=== PATIENT | male | born 1985 | race Hispanic/Latino ===

== ENCOUNTER 2018-12-18 01:53 | Inpatient (IN) | payer SELFPAY ==
[2018-12-18 05:52] LABS: #Lymphocytes 1.2 thou/uL (1.20-3.40); #Monocytes 0.8 thou/uL (0.11-0.59); #Neutrophils 13.4 thou/uL (1.40-6.50); %Basophils 0.1 % (0.0-1.0); %Eosinophils 0.2 % (0.0-10.0); %Lymphocytes 7.5 % (21.0-51.0); %Neutrophils 87.2 % (42.0-75.0); Hemoglobin 15.2 g/dL (14.0-18.0); Mean Corpuscular HGB CONC 34.7 g/dL (32.0-36.0); Mean Corpuscular Hemoglobin 33.4 pg (27.0-31.0); Mean Corpuscular Volume 96.2 fL (78.0-98.0); Mean Platelet Volume 6.9 fL (7.4-10.4); Platelet Count 208 thou/uL (130-400); RBC Distribution Width 11.6 % (11.5-14.5); Red Blood Cell (RBC) Count 4.54 mill/uL (4.70-6.10); White Blood Cell (WBC) Count 15.4 thou/uL (4.8-10.8)
[2018-12-18 06:13] LABS: ALT (SGPT) 90 U/L (8-55); AST (SGOT) 84 U/L (5-34); Albumin 4.7 g/dL (3.5-5.0); Alkaline Phosphatase 92 U/L (40-150); Anion Gap 18 mmol/L (10-20); BUN (Urea Nitrogen) 11 mg/dL (8.9-20.6); Bilirubin, Total 0.4 mg/dL (0.2-1.2); Calc. Creatinine Clearance 0 mL/min (70-130); Carbon Dioxide 20 mmol/L (22-29); Chloride 103 mmol/L (98-107); Estimated GFR-MDRD 88; Glucose 117 mg/dL (70-105); Lipase 17 U/L (8-78); Potassium 4.2 mmol/L (3.5-5.1); Protein, Total 7.7 g/dL (6.0-8.3); Sodium 137 mmol/L (136-145)
[2018-12-18 07:17] LABS: Bacteria/HPF None Seen HPF (None Seen); Bilirubin Negative (Negative); Blood, Urine 1+ (Negative); Clarity Clear (Clear); Glucose, Urine (Dipstick) Normal (Negative); Leukocyte 75 Leu/uL (Negative); Mucous/LPF Rare LPF (<2+); Nitrite Negative (Negative); Protein, Urine (Dipstick) 100 mg/dL (Neg-Trace); RBC/HPF 0-3 HPF (0-3); Squamous Epithelial 0-3 HPF (0-3); Urobilinogen Normal mg/dL (Less than 2); WBC/HPF 21-50 HPF (0-3)
--- NOTE | 2018-12-18 07:45 | RAD ---
Exam:Right femur 2 views HISTORY: Pain. Trauma. COMPARISON: None FINDINGS: Displaced femoral neck fracture. Associated deformity and soft tissue swelling. IMPRESSION: Femoral neck fracture.
[2018-12-18] MEDS ORDERED: CEFAZOLIN 2 GM in Premix Bag 1 BAG IVPB SCH (08:00)
[2018-12-18] MEDS ORDERED: Morphine 4 MG/ML VIAL ONE (08:12)
[2018-12-18] MEDS ORDERED: ceFAZolin Sodium (SDC) 2 GM/100 ML BAG ONE (08:14)
[2018-12-18] MEDS ORDERED: Fentanyl 100 MCG/2 ML VIAL ONE (08:22)
[2018-12-18] MEDS ORDERED: Midazolam HCl 2 mg/2 ml Vial ONE (08:22)
[2018-12-18] MEDS ORDERED: Famotidine/PF 20 mg/2ml Vial ONE (08:22)
[2018-12-18] MEDS ORDERED: Albuterol Sulfate HFA (OR ONLY) ONE (08:28)
--- NOTE | 2018-12-18 09:00 | HP ---
This is Truman Lainez PA-C dictating a report for Jluis Downs MD. REQUESTING PHYSICIAN: Dr. Ye. CONSULTATIONS: Orthopedics, Dr. Cruz. HISTORY OF PRESENT ILLNESS: The patient is a 33-year-old man, who was intoxicated last night when he fell down a flight of stairs. He was brought to the emergency department by ground EMS, where he underwent evaluation and examination and was noted to have a right femoral neck fracture, in the which time we were asked to admit the patient and obtain orthopedic consultation. The patient denies loss of consciousness. The family and friends at bedside state that they did not see him lose consciousness. ALLERGIES: NONE. CURRENT MEDICATIONS: None. PAST MEDICAL HISTORY: None. PAST SURGICAL HISTORY: None. SOCIAL HISTORY: The patient smokes approximately half pack of cigarettes per day. Drinks alcohol on weekends. Denies drug use. 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 REVIEW OF SYSTEMS: Ten-point review of systems is negative except as otherwise stated. PHYSICAL EXAMINATION: VITAL SIGNS: Blood pressure 104/63, heart rate 86, respirations 18, oxygen saturation 98% on room air, and temperature is 98. GENERAL: The patient is resting comfortably in bed. He is awake and utilizing a pinsetter mechanic automatic. He is able to answer questions. He is alert and oriented x3. Ferguson Coma Scale is 15. HEENT: Head is normocephalic and atraumatic. Eyes; extraocular motion intact. PERRLA bilaterally. Ears are atraumatic without discharge. Nose is atraumatic without discharge. Oropharynx is clear. The patient does have abrasions to the right side of his face from the forehead to his maxilla. NECK: Nontender. Trachea is midline. No JVD. CHEST: Clear to auscultation with good inspiratory and expiratory effort. HEART: Regular rate and rhythm. ABDOMEN: Soft, flat, and nontender with active bowel sounds. PELVIS: Stable with tenderness to palpation of the right hip consistent with his fracture. EXTREMITIES: All neurovascularly intact. BACK: By report is atraumatic and nontender. LABORATORY FINDINGS: White blood cell count 15.4, hemoglobin 15.2, hematocrit 43.7, and platelets 208. Sodium 137, potassium 4.2, chloride 103, CO2 of 20, BUN 11, creatinine 0.99, glucose 117, total bilirubin 0.4, AST 84, ALT 90, alkaline phosphatase 92. Urinalysis; positive LE, 21 to 50 wbc's. RADIOGRAPHIC FINDINGS: CT of the head without contrast shows no acute process. CT of the facial bones without contrast shows no acute findings. CT of the C-spine without contrast shows no acute findings. Plain radiographs of the right hip show a femoral neck fracture. ASSESSMENT: 1. Status post ground level fall. 2. Facial abrasions and contusions. 3. Right femoral neck fracture. 4. Acute pain secondary to trauma. PLAN: Plan will be to keep the patient n.p.o. Admit him to the surgical floor. IV rehydration, pain medications, pulmonary toilet, gastritis, and mechanical VTE prophylaxis. Per discussion with Dr. Cruz, the patient will be taken to the operating room today. The patient was seen in the emergency department with Dr. Downs. Job ID: [id number]
[2018-12-18] MEDS ORDERED: Ondansetron HCl/PF 4 MG/2 ML Vial IVP PRN (09:24)
[2018-12-18] MEDS ORDERED: Promethazine HCl 25 MG/ML VIAL SLOW IVP PRN (09:24)
[2018-12-18] MEDS ORDERED: Promethazine HCl 25 MG/ML VIAL IM PRN ×2 (09:24→09:38)
[2018-12-18] MEDS ORDERED: Meperidine HCl/PF 25 MG/ML VIAL SLOW IVP PRN (09:24)
[2018-12-18] MEDS ORDERED: Dextrose 5% in Water 1,000 ML IV PRN (09:38)
[2018-12-18] MEDS ORDERED: Ondansetron PF 4 MG/2 ML Vial IVP PRN (09:38)
[2018-12-18] MEDS ORDERED: hydrALAZINE 20 MG/ML VIAL SLOW IVP PRN (09:38)
[2018-12-18] MEDS ORDERED: Sodium Chloride 0.9% 1,000 ML IV SCH (09:38)
[2018-12-18] MEDS ORDERED: Dextrose 50% Abboject 50 ML SYRINGE SLOW IVP PRN (09:38)
[2018-12-18] MEDS ORDERED: Acetaminophen 1,000 MG in Premix Bag 1 BAG IVPB SCH (09:38)
[2018-12-18] MEDS ORDERED: Ondansetron ODT 4 MG TAB PO PRN (09:38)
[2018-12-18] MEDS ORDERED: Acetaminophen/Codeine 30-300mg Tablet PO PRN (09:48)
[2018-12-18] MEDS ORDERED: Famotidine/PF 20 mg/2ml Vial SLOW IVP SCH (10:00)
[2018-12-18] MEDS ORDERED: Aspirin 81 mg Enteric Coated Tablet PO SCH ×2 (10:00)
[2018-12-18] MEDS ORDERED: Morphine 2 MG/ML SYRINGE SLOW IVP PRN (10:01)
[2018-12-18] MEDS: Ketorolac Tromethamine 30 MG/ML VIAL IVP SCH ×3 (10:42→21:01)
--- NOTE | 2018-12-18 11:04 | CT ---
CT HEAD NONCONTRAST: INDICATIONS: Fall with head injury. Pain. FINDINGS: No ventriculomegaly, mass effect, midline shift, or acute intracranial hemorrhage. The calvarium is intact. There is no pneumocephalus. Mild scattered opacification of the paranasal sinuses is seen. IMPRESSION: No acute intracranial hemorrhage or mass effect. POS: [facility]
--- NOTE | 2018-12-18 11:05 | CT ---
CT FACIAL BONES: INDICATIONS: Fall with facial injury and pain. FINDINGS: The orbital alegre are intact. No retrobulbar hematoma or mass effect. No displaced fracture of the nasal bones. The temporomandibular joints are maintained in alignment where visualized. No fracture of either maxillary sinus. No acute hemorrhagic fluid level of the paranasal sinuses. There is sca ttered paranasal sinus mucosal thickening. The mandible is intact. IMPRESSION: No displaced facial fracture. POS: [facility]
[2018-12-18] MEDS ORDERED: Lidocaine 1% PF 5 ML VIAL ONE (11:26)
[2018-12-18] MEDS ORDERED: Ondansetron PF 4 MG/2 ML Vial ONE (11:26)
[2018-12-18] MEDS ORDERED: Dexamethasone 20 MG/5 ML VIAL ONE (11:26)
[2018-12-18] MEDS ORDERED: Metoclopramide HCl 10 MG/2 ML VIAL ONE (11:26)
[2018-12-18] MEDS ORDERED: PROPOFOL 200 MG/20 ML VIAL ONE (11:26)
[2018-12-18] MEDS ORDERED: PHENYLEPHRINE-NS 100 MCG/ML 10 ML SYRINGE ONE (11:26)
[2018-12-18] MEDS ORDERED: Succinylcholine Chloride 20 MG/ML 10 ml SYRINGE FS ONE (11:26)
[2018-12-18] MEDS ORDERED: Ketorolac Tromethamine 30 MG/ML VIAL ONE (11:26)
[2018-12-18] MEDS ORDERED: traMADol HCl 50 MG TAB PO PRN (15:57)
--- NOTE | 2018-12-18 15:57 | HP ---
HISTORY OF PRESENT ILLNESS: This is a 33-year-old man, who is intoxicated, fell down a flight of stairs after visiting his [id number]. Denies injury to other parts other than scraping his face. PAST MEDICAL HISTORY: Negative. CURRENT MEDICATIONS: None. ALLERGIES: NONE. SOCIAL HISTORY: He does drink alcohol on a regular basis. 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 REVIEW OF SYSTEMS: Positive only for facial lacerations. Denies headache, nausea, loss of consciousness, or other pain. PHYSICAL EXAMINATION: GENERAL: Shows a pleasant gentleman, who is in no distress. Facial abrasions are present. HEENT: Normocephalic, atraumatic. LUNGS: Clear. MUSCULOSKELETAL: Right hip has pain with internal and external rotation. Abrasions on the right leg. DIAGNOSTIC DATA: Radiographs show a displaced femoral neck fracture. PLAN: Plan is for closed reduction and pinning, possible open reduction of the right femoral neck. He understands the risks of infection, stiffness, , blood clots, transfusion, and , he elected to proceed with surgery. Job ID: [id number]
[2018-12-18] MEDS: traMADol HCl 50 MG TAB PO SCH ×2 (17:37→23:20)
[2018-12-18] MEDS: Acetaminophen 500 MG TAB PO SCH ×2 (17:37→23:20)
--- NOTE | 2018-12-18 17:43 | RAD ---
EXAM: RIGHT HIP TWO VIEWS: History: Status post ORIF. FINDINGS: Two portable fluoroscopic spot films are presented for interpretation. Three internal fixation screws stabilize the previously noted femoral neck fracture. IMPRESSION: Three internal fixation screws stabilizing the previously noted femoral neck fracture. POS: [facility]NE
[2018-12-18 19:24] VITALS: BMI 28.3
[2018-12-18] MEDS: Famotidine 20 MG TAB PO SCH (20:38)
[2018-12-18] MEDS: Ibuprofen 800 MG TAB PO SCH (21:03)
--- NOTE | 2018-12-18 22:59 | OP ---
DATE OF PROCEDURE: 12/18/2018 PREOPERATIVE DIAGNOSIS: Femoral neck fracture, right. POSTOPERATIVE DIAGNOSIS: Femoral neck fracture, right. PROCEDURES PERFORMED: Closed reduction and percutaneous pin fixation of the right hip. ANESTHESIA: General. BLOOD LOSS: Minimal, less than 10. SPECIMEN: None. DRAIN: None. COMPLICATION: None. DESCRIPTION OF PROCEDURE: The patient was taken to the operating room, where general anesthesia was induced. The patient was placed on fracture table. Reduction was performed with fracture table and prepped and draped in the usual sterile fashion. Initial reduction was anatomic and placed our first screw across the fracture through a small lateral incision and compressed it. I did somewhat over compress the fracture site; however, I did not feel as I would likely go back on this. I placed two more roughly parallel pins, an 80 and an 85 were used with very good compression, very strong bone. Irrigation performed. Skin was closed with Monocryl. Sterile dressings applied. Job ID: [id number]
--- NOTE | 2018-12-19 01:12 | PRG ---
DATE OF SERVICE: 12/18/2018 SUBJECTIVE: The patient is currently on the surgical floor. The patient is postop close reduction and percutaneous pin fixation of the right hip. The patient is currently tolerating a regular diet. The patient reports that his right hip pain is well controlled. The patient does report chest pain with cough and deep breath. OBJECTIVE: VITAL SIGNS: Stable. The patient is afebrile. GENERAL: The patient is awake and alert, in no distress. HEENT: Facial abrasions mainly to the right. RESPIRATORY: Bilateral breath sounds clear. Equal chest expansion. No acute distress. EXTREMITIES: Neurovascularly intact x4. ASSESSMENT: 1. Status post fall from stairs 2. Facial abrasions and contusions. 3. Right femoral neck fracture, postop day #0, close reduction and percutaneous pin fixation. 4. Acute traumatic pain. PLAN: Continue regular diet as tolerated. Continue supportive care. PT and OT tomorrow. We will obtain a chest x-ray as the patient fell a flight of stairs. No prior chest x-ray obtained. Job ID: [id number] [facility]
[2018-12-19] MEDS: Ketorolac Tromethamine 30 MG/ML VIAL IVP SCH (05:00)
[2018-12-19] MEDS: traMADol HCl 50 MG TAB PO SCH ×3 (05:57→18:56)
[2018-12-19] MEDS: Ibuprofen 800 MG TAB PO SCH ×3 (05:57→21:34)
[2018-12-19] MEDS: Acetaminophen 500 MG TAB PO SCH ×3 (05:57→18:56)
[2018-12-19] MEDS: Famotidine 20 MG TAB PO SCH (08:02)
[2018-12-19] MEDS ORDERED: Acetaminophen/Codeine 30-300mg Tablet PO PRN ×2 (08:06)
[2018-12-19] MEDS ORDERED: Azithromycin 200 MG/5 ML Oral Suspension PO SCH (09:00)
[2018-12-19] MEDS ORDERED: Azithromycin 250 MG TAB PO SCH (09:30)
[2018-12-19] MEDS: Enoxaparin Sodium 40 MG/0.4 ML SYRINGE SC SCH (09:56)
[2018-12-19] MEDS ORDERED: cefTRIAXone\\ROCEPHIN 1 GM in Sodium Chloride 0.9% 100 ML IVPB SCH (10:00)
--- NOTE | 2018-12-19 10:14 | RAD ---
SINGLE VIEW CHEST: Date: 12/19/18 COMPARISON: None. HISTORY: Fall with chest pain. FINDINGS: Single view of the chest shows a normal sized cardiomediastinal silhouette. There is no evidence of c onsolidation, mass, or pleural effusion. The bones are unremarkable. IMPRESSION: No evidence of acute cardiopulmonary disease. POS: [facility]
--- NOTE | 2018-12-19 11:36 | PRG ---
DATE OF SERVICE: 12/19/2018 SUBJECTIVE: The patient is currently on the surgical floor. The patient is postop closed reduction and percutaneous pin fixation of the right hip day #1 postop. The patient states that his pain is well controlled. He has a regular diet. He is voiding well. OBJECTIVE: VITAL SIGNS: Temp 97.8, pulse 60, respirations 18, oxygen saturation 99% on room air, blood pressure 118/66. GENERAL: The patient is awake and alert, he is sitting on the side of the bed. HEENT: Facial lesions mainly to the right. RESPIRATORY: Clear to auscultation bilaterally, no acute distress. CARDIAC: Regular rate and rhythm. EXTREMITIES: Neurovascularly intact x4. LABORATORY DATA: No new labs today. ASSESSMENT: 1. Status post ground level fall. 2. Facial lesions and contusions. 3. Right femoral neck fracture, postop day #1, close reduction and percutaneous pin fixation. 4. Acute traumatic pain. PLAN: Continue regular diet as tolerated. Pain is well controlled. He will start with PT/OT today. If his pain worsens with PT/OT, can increase tramadol. Lovenox started for VTE prophylaxis. Seen and evaluated with Dr. Raymundo at pt's bedside. Job ID: [id number] [facility]
[2018-12-19] MEDS ORDERED: Scopolamine 1.5 mg/72 hour Patch TD SCH (15:30)
[2018-12-20] MEDS: Acetaminophen 500 MG TAB PO SCH ×3 (01:00→12:27)
[2018-12-20] MEDS: traMADol HCl 50 MG TAB PO SCH ×3 (01:00→12:27)
--- NOTE | 2018-12-20 01:59 | PRG ---
DATE OF SERVICE: 12/19/2018 SUBJECTIVE: The patient remains on the surgical floor. The patient is postop closed reduction and percutaneous pin fixation of the right hip, postop day #1. The patient's pain continues to be well controlled. The patient is tolerating a diet. OBJECTIVE: VITAL SIGNS: Stable. The patient remains afebrile. GENERAL: The patient is resting comfortably, in no distress. RESPIRATORY: Equal chest rise and fall, no distress. ASSESSMENT: 1. Status post fall from stairs. 2. Right femoral neck fracture, postop day #1 closed reduction and percutaneous pin fixation. 3. Facial abrasions and contusions. 4. Tongue laceration. 5. Acute traumatic pain. PLAN: Continue supportive care and physical and occupational therapy. OMFS evaluated the patient's tongue laceration and recommends that it will heal on its own. We will continue scopolamine patch as the patient had some dizziness earlier today with ambulation. Possible discharge home tomorrow. Job ID: [id number]
[2018-12-20] MEDS: Ibuprofen 800 MG TAB PO SCH (06:14)
[2018-12-20] MEDS ORDERED: PHOS-NAK 1 PKT PACK PO SCH (08:30)
[2018-12-20] MEDS ORDERED: Polyethylene Glycol 3350 17 GM Packet PO SCH (09:00)
[2018-12-20] MEDS: Enoxaparin Sodium 40 MG/0.4 ML SYRINGE SC SCH (09:24)
[2018-12-20 11:09] VITALS: BP 147/90; TEMP 97.9
--- NOTE | 2018-12-21 04:53 | DIS ---
DATE OF ADMISSION: 12/18/2018 DATE OF DISCHARGE: 12/20/2018 RESIDENT: Harry Uribe DO CONSULTS: Kaden Cruz MD, orthopedist. PROCEDURES: Close reduction and percutaneous pin fixation of the right hip. PRIMARY DIAGNOSES: 1. Right femoral neck fracture. 2. Facial abrasions, contusions. 3. Status post ground level fall. 4. Acute pain secondary to trauma. SECONDARY DIAGNOSIS: Tobacco abuse. DISCHARGE MEDICATIONS: 1. Acetaminophen 1000 mg p.o. q.6 hours p.r.n. pain. 2. Ibuprofen 800 mg p.o. q.8 hours p.r.n. pain. 3. Zofran 4 mg p.o. q.6 p.r.n. nausea and vomiting. 4. Polyethylene glycol 17 g p.o. daily p.r.n. constipation. 5. Tramadol 50 mg p.o. q.6 p.r.n. pain. DISCONTINUED MEDICATIONS: None. HISTORY OF PRESENT ILLNESS/HOSPITAL COURSE: The patient is a 33-year-old man who while intoxicated, fell down a flight of stairs. He was brought to this emergency department by EMS and was found to have a right femoral neck fracture on a hip x-ray. Brain CT showed no acute intracranial hemorrhage or mass effect. CT of facial bones revealed no displaced facial fractures. At this time, he was admitted and Dr. Cruz in the Orthopedic Department was consulted. He took the patient on 12/18/2018 to the OR for a closed reduction and percutaneous pin fixation of the right hip. The patient tolerated the procedure well. After the surgery, his diet was advanced and tolerated and pain was well controlled. He performed well with PT, OT. On 12/20/2018, continued to have no complications, and so it was decided he was stable to be sent home. DISPOSITION: Stable. DISCHARGE INSTRUCTIONS: 1. Location: [facility]. 2. Diet: No restrictions. 3. Activity: Per orthopedics and PT, OT suggestions. 4. Followup: Dr. Kaden Cruz in 3-4 weeks. The patient was seen and evaluated with Dr. Raymundo at patient's bedside. Job ID: [id number]
== END 2018-12-20 14:55 | disposition home or self-care (01) | DRG 482 ==
LOC: ERS 01:53 → SURG A 05:22
PROVIDERS: ADMIT Surgery; ATTEND Surgery
PROC: 0QS634Z Reposition Right Upper Femur with Internal Fixation Device, Percutaneous Approach (ICD-10-PCS; principal; 2018-12-18)
DX: S72.001A Fracture of unspecified part of neck of right femur, initial encounter for closed fracture (principal); W10.9XXA Fall (on) (from) unspecified stairs and steps, initial encounter; S00.81XA Abrasion of other part of head, initial encounter; S01.512A Laceration without foreign body of oral cavity, initial encounter; F17.210 Nicotine dependence, cigarettes, uncomplicated; G89.11 Acute pain due to trauma; Y92.9 Unspecified place or not applicable
CPT/HCPCS: 70450; 70486; 71045; 76000; 80053; 81003; 81015; 83690; 85025; 87086; C1713; C1769; J0131; J0690; J0696; J1650; J1885; J2250; J2270; J3010; J3490; S0028

== ENCOUNTER 2020-01-10 16:04 | Emergency (ER) | payer SELFPAY | END 2020-01-10 17:58 | disposition home or self-care (01) | LOC: ERS 16:04 | DX: Z48.89 Encounter for other specified surgical aftercare (principal); F17.210 Nicotine dependence, cigarettes, uncomplicated | CPT/HCPCS: 99282 ==

== ENCOUNTER 2023-06-28 01:01 | Emergency (ER) | payer SELFPAY | END 2023-06-28 01:45 | disposition left against medical advice (07) | LOC: ERS 01:01 | DX: Z53.21 Procedure and treatment not carried out due to patient leaving prior to being seen by health care provider (principal) | CPT/HCPCS: 93005 ==